=== PATIENT | male | born 1955 | race Caucasian/White ===

== ENCOUNTER 2020-09-06 14:25 | Emergency (ER) | payer BC, OTHER ==
[2020-09-06 15:24] VITALS: TEMP 98.8; BMI 27.4
[2020-09-06] MEDS ORDERED: ADENOSINE 6 MG/2 ML VIAL IVPUSH ONE ×2 (15:24→15:31)
[2020-09-06] MEDS ORDERED: SODIUM CHLORIDE 1,000 ML IV STA (15:33)
[2020-09-06 15:37] LABS: INR 1.12 (0.82-1.09); PROTHROMBIN TIME (PATIENT) 12.4 SEC (10.2-13.0)
[2020-09-06 15:44] LABS: BASO % 0.6 % (0-2.0); EOS % 4.1 % (0-4.5); HEMATOCRIT 45.8 % (35.4-49); HEMOGLOBIN 16.1 GM/dl (11.7-16.9); MCH 32.7 pg (25.7-33.7); MCHC 35.3 g/dl (32.0-35.9); MEAN CELL VOLUME 92.9 fl (80-96); MEAN PLT VOLUME 8.7 fl (7.5-11.1); MONO % 9.1 % (3.8-10.2); NEUT % 66.2 % (42.8-82.8); PLATELET COUNT 278 K/MM3 (134-434); RBC 4.93 M/mm3 (4.00-5.60); RDW 11.6 % (11.9-15.9); WHITE BLOOD COUNT 10.3 K/mm3 (4.0-10.8)
[2020-09-06 15:47] LABS: ALBUMIN 4.1 g/dl (3.4-5.0); BILIRUBIN,TOTAL 0.7 mg/dl (0.2-1); CALCIUM 8.9 mg/dl (8.5-10); CREATININE 0.9 mg/dl (0.55-1.3); MAGNESIUM 2.2 mg/dL (1.8-2.4); POTASSIUM 3.9 mmol/L (3.5-5.1); TOT PROT 7.4 g/dl (6.4-8.2)
[2020-09-06] MEDS ORDERED: dilTIAZem HCL 50 MG/10 ML - 10 ML VIAL IVPUSH ONE ×4 (16:02→17:44)
[2020-09-06] MEDS ORDERED: dilTIAZem HCL 50 MG/10 ML - 10 ML VIAL ONE (16:09)
[2020-09-06] MEDS ORDERED: dilTIAZem HCL 60 MG TABLET PO ONE (16:52)
[2020-09-06 16:54] LABS: N-TERMINAL BNP 568.1 pg/ml (5-125)
[2020-09-06] MEDS ORDERED: APIXABAN 5 MG TABLET PO ONE (17:12)
[2020-09-06 18:09] VITALS: BP 136/88; PULSE 106
[2020-09-06] MEDS ORDERED: APIXABAN 5 MG TABLET PO SCH (22:00)
== END 2020-09-06 18:18 | disposition home or self-care (01) ==
LOC: FER 14:25
PROC: 3E033GC Introduction of Other Therapeutic Substance into Peripheral Vein, Percutaneous Approach (ICD-10-PCS; principal; 2020-09-06)
PROC: 3E033GC Introduction of Other Therapeutic Substance into Peripheral Vein, Percutaneous Approach (ICD-10-PCS; 2020-09-06)
PROC: 3E033GC Introduction of Other Therapeutic Substance into Peripheral Vein, Percutaneous Approach (ICD-10-PCS; 2020-09-06)
PROC: 3E033GC Introduction of Other Therapeutic Substance into Peripheral Vein, Percutaneous Approach (ICD-10-PCS; 2020-09-06)
PROC: 3E033GC Introduction of Other Therapeutic Substance into Peripheral Vein, Percutaneous Approach (ICD-10-PCS; 2020-09-06)
PROC: 3E033GC Introduction of Other Therapeutic Substance into Peripheral Vein, Percutaneous Approach (ICD-10-PCS; 2020-09-06)
PROC: 3E0337Z Introduction of Electrolytic and Water Balance Substance into Peripheral Vein, Percutaneous Approach (ICD-10-PCS; 2020-09-06)
DX: R00.2 Palpitations (principal); I48.92 Unspecified atrial flutter
CPT/HCPCS: 36415; 71045-TC-FY; 80053; 82550; 82553; 83735; 83880; 84100; 84443; 84484; 85025; 85610; 93005; 99285-25

== ENCOUNTER 2021-12-12 13:53 | Observation (INO) | payer OTHER ==
[2021-12-12 15:52] LABS: HEMATOCRIT 43.1 % (35.4-49); HEMOGLOBIN 15.4 G/dL (11.7-16.9); MCH 32.5 pg (25.7-33.7); MCHC 35.7 g/dl (32.0-35.9); MEAN CELL VOLUME 91.1 fl (80-96); MEAN PLT VOLUME 8.4 fl (7.5-11.1); RBC 4.73 10^6/uL (4.00-5.60); WHITE BLOOD COUNT 13.3 10^3/uL (4.0-10.8)
[2021-12-12 16:27] LABS: INR 1.09 (0.83-1.09); PROTHROMBIN TIME (PATIENT) 12.5 SEC (9.7-13.0)
[2021-12-12 16:30] LABS: ACTIVATED PTT 21.5 SECONDS (25.2-36.5)
[2021-12-12 16:36] LABS: ALBUMIN 4.4 g/dl (3.4-5.0); BILIRUBIN,TOTAL 0.7 mg/dl (0.2-1); CALCIUM 9.7 mg/dl (8.5-10); TOT PROT 7.5 g/dl (6.4-8.2)
[2021-12-12 17:38] LABS: EPITHELIAL CELLS RARE /hpf
[2021-12-12 17:39] LABS: URIC ACID CRYSTALS 1+ /hpf (NONE SEEN)
[2021-12-12 17:46] LABS: PLATELET ESTIMATE ADEQUATE
[2021-12-12 18:54] VITALS: BMI 27.3
[2021-12-12] MEDS ORDERED: POLYETHYLENE GLYCOL (HEALTHYLAX) 3350 17 GM PACKET PO PRN (21:51)
[2021-12-12] MEDS ORDERED: ACETAMINOPHEN 325 MG TABLET (FP) PO PRN (21:51)
[2021-12-12] MEDS ORDERED: ZOLPIDEM TARTRATE 5 MG TABLET PO PRN (22:00)
[2021-12-12] MEDS ORDERED: ATORVASTATIN CA 40 MG TABLET (FP) PO SCH (22:00)
[2021-12-13 09:31] LABS: HEMATOCRIT 47.4 % (35.4-49); HEMOGLOBIN 16.5 G/dL (11.7-16.9); MCH 32.3 pg (25.7-33.7); MCHC 34.8 g/dl (32.0-35.9); MEAN CELL VOLUME 92.7 fl (80-96); MEAN PLT VOLUME 8.3 fl (7.5-11.1); PLATELET COUNT 320.1 10^3/uL (134-434); RBC 5.11 10^6/uL (4.00-5.60); RDW 13.4 % (11.9-15.9); WHITE BLOOD COUNT 10.7 10^3/uL (4.0-10.8)
[2021-12-13 09:47] LABS: CALCIUM 9.9 mg/dl (8.5-10)
[2021-12-13] MEDS ORDERED: FOLIC ACID PO SCH (10:00)
[2021-12-13] MEDS ORDERED: MULTIVIT MINERALS PO SCH (10:00)
[2021-12-13] MEDS ORDERED: CITALOPRAM HYDROBROMIDE 20 MG TABLET PO SCH (10:00)
[2021-12-13] MEDS ORDERED: dilTIAZem HCL 60 MG TABLET PO SCH (10:00)
[2021-12-13] MEDS ORDERED: CHOLECALCIFEROL (VIT D3) 5000 UNITS (125 MCG) CAP PO SCH (10:00)
[2021-12-13] MEDS ORDERED: [UNRECOGNIZED DRUG - OTHER] PO SCH (10:00)
[2021-12-13 11:41] VITALS: PULSE 82; TEMP 98
[2021-12-13 14:35] VITALS: BP 142/81
[2021-12-13 14:53] LABS: PLATELET ESTIMATE ADEQUATE
== END 2021-12-13 14:40 | disposition home or self-care (01) ==
LOC: FER 13:53 → FM/S 16:42
PROVIDERS: ADMIT Internal Medicine; ATTEND Nurse Practitioner Family
DX: R41.82 Altered mental status, unspecified (principal); I48.91 Unspecified atrial fibrillation; Z79.4 Long term (current) use of insulin; F32.9 Major depressive disorder, single episode, unspecified; I10 Essential (primary) hypertension; E78.5 Hyperlipidemia, unspecified
CPT/HCPCS: 36415; 70450-TC; 70551-TC; 71045-TC-FY; 72125-TC; 80048; 80053; 81003; 81015; 84443; 84484; 85025; 85610; 85730; 87086; 93005; 99285-25; C9803-CS; G0378; U0003; U0005

== ENCOUNTER 2022-08-21 14:06 | Emergency (ER) | payer OTHER, MEDICARE ==
[2022-08-21 14:14] VITALS: RESP 20; TEMP 98.3; BMI 27.4
[2022-08-21] MEDS ORDERED: SODIUM CHLORIDE 0.9% 500 ML INFUS.BAG IV ONE (14:18)
[2022-08-21] MEDS ORDERED: ADENOSINE 6 MG/2 ML VIAL IVPUSH ONE (14:19)
[2022-08-21] MEDS ORDERED: dilTIAZem HCL 50 MG/10 ML - 10 ML VIAL IVPUSH ONE ×2 (14:35→15:25)
[2022-08-21] MEDS ORDERED: dilTIAZem HCL 50 MG/10 ML - 10 ML VIAL ONE (15:04)
[2022-08-21 15:18] LABS: MCH 31.5 pg (25.7-33.7); MCHC 34.1 g/dl (32.0-35.9); MEAN CELL VOLUME 92.4 fl (80-96); RBC 5.09 10^6/uL (4.00-5.60); RDW 13.3 % (11.9-15.9); WHITE BLOOD COUNT 9.5 10^3/uL (4.0-10.8)
[2022-08-21 15:25] LABS: CALCIUM 9.2 mg/dl (8.5-10)
[2022-08-21 15:26] VITALS: PULSE 131
[2022-08-21 15:29] LABS: ALBUMIN 4.1 g/dl (3.4-5.0); BILIRUBIN,TOTAL 0.7 mg/dl (0.2-1); CREATININE 0.9 mg/dl (0.55-1.3); MAGNESIUM 1.9 mg/dL (1.8-2.4); TOT PROT 7.2 g/dl (6.4-8.2)
[2022-08-21 16:14] VITALS: BP 127/82
[2022-08-21 16:53] LABS: PLATELET ESTIMATE ADEQUATE
== END 2022-08-21 16:44 | disposition home or self-care (01) ==
LOC: FER 14:06
PROC: 3E033GC Introduction of Other Therapeutic Substance into Peripheral Vein, Percutaneous Approach (ICD-10-PCS; principal; 2022-08-21)
DX: I48.92 Unspecified atrial flutter (principal)
CPT/HCPCS: 36415; 71045-TC-FY; 80053; 83735; 84443; 84484; 85027; 93005; 93010; 99291

== ENCOUNTER 2023-09-29 11:00 | Emergency (ER) | payer OTHER, MEDICARE ==
[2023-09-29 11:36] VITALS: RESP 16; TEMP 98.4; BMI 28.1
[2023-09-29] MEDS: SODIUM CHLORIDE 0.9% 1000 ML INFUS.BAG IV ONE (12:00)
[2023-09-29 12:59] LABS: HEMATOCRIT 51.2 % (35.4-49); HEMOGLOBIN 17.3 G/dL (11.7-16.9); MCH 31.5 pg (25.7-33.7); MCHC 33.8 g/dl (32.0-35.9); MEAN CELL VOLUME 93.3 fl (80-96); MEAN PLT VOLUME 8.9 fl (7.5-11.1); PLATELET COUNT 299.1 10^3/uL (134-434); RBC 5.49 10^6/uL (4.00-5.60); RDW 13.7 % (11.9-15.9); WHITE BLOOD COUNT 8.4 10^3/uL (4.0-10.8)
[2023-09-29 13:37] LABS: POTASSIUM 4.7 mmol/L (3.5-5.1)
[2023-09-29 13:39] LABS: ALBUMIN 4.2 g/dl (3.4-5.0)
[2023-09-29 13:40] LABS: CALCIUM 9.6 mg/dL (8.5-10.1)
[2023-09-29 13:41] LABS: BLOOD UREA NITROGEN 27.9 mg/dL (7-18)
[2023-09-29 13:43] LABS: CREATININE 1.4 mg/dL (0.55-1.3)
[2023-09-29 13:44] LABS: BILIRUBIN,TOTAL 0.6 mg/dL (0.2-1); TOT PROT 7.8 g/dl (6.4-8.2)
[2023-09-29 13:55] LABS: INR 1.09 (0.83-1.09); PROTHROMBIN TIME (PATIENT) 12.6 SEC (9.7-13.0)
[2023-09-29 13:57] LABS: ACTIVATED PTT 31.8 SECONDS (25.2-36.5)
[2023-09-29 14:48] LABS: PLATELET ESTIMATE ADEQUATE
[2023-09-29 16:13] VITALS: PULSE 91
[2023-09-29] MEDS ORDERED: dilTIAZem HCL 30 MG TABLET ONE (16:37)
[2023-09-29] MEDS: dilTIAZem HCL 30 MG TABLET PO ONE (16:39)
[2023-09-29 16:54] VITALS: BP 121/65
== END 2023-09-29 16:40 | disposition home or self-care (01) ==
LOC: FER 11:00
DX: R00.0 Tachycardia, unspecified (principal); E86.0 Dehydration
CPT/HCPCS: 36415; 71046-TC-FY; 80053; 84443; 84484; 85027; 85379; 85610; 85730; 93005; 99285-25